=== PATIENT | female | born 1985 | race African-American/Black ===

== ENCOUNTER 2024-06-02 17:42 | Emergency (ER) | payer OTHER ==
--- NOTE | 2024-06-02 18:43 | ER ---
Nurse's Notes [facility] Name: Lacy Russo Age: 38 yrs Sex: Female : 1985 Arrival Date: 06/02/2024 Time: 17:42 Bed DIS1 Private MD: Diagnosis: Periapical abscess without sinus Presentation: 06/02 18:39 Chief complaint: Patient states: ABSCESS TO LEFT LOWER JAW LINE. Coronavirus screen: cm10 Client denies travel out of the [place] in the last 14 days. Ebola Screen: Patient denies travel to an Ebola-affected area in the 21 days before illness onset. No symptoms or risks identified at this time. Initial Sepsis Screen: Does the patient meet any 2 criteria? No. Patient's initial sepsis screen is negative. Does the patient have a suspected source of infection? No. Patient's initial sepsis screen is negative. Risk Assessment: Do you want to hurt yourself or someone else? Patient reports no desire to harm self or others. Onset of symptoms was May 31, 2024. 18:39 Method Of Arrival: Ambulatory 10 18:39 Acuity: IMANI 4 cm10 Triage Assessment: 18:42 General: Appears in no apparent distress. comfortable, Behavior is calm, cooperative. cm10 Neuro: No deficits noted. Level of Consciousness is awake, alert, obeys commands, Oriented to person, place, time, situation, Appropriate for age. Respiratory: No deficits noted. Airway is patent Respiratory effort is even, unlabored, Respiratory pattern is regular, symmetrical. Historical: - Allergies: 18:42 No Known Allergies; cm10 - Home Meds: 18:42 None [Active]; cm10 - PMHx: 18:42 None; cm10 - PSHx: 18:42 None; cm10 - Immunization history:: Adult Immunizations up to date. - Infectious Disease History:: Denies. - Social history:: Smoking status: Patient denies any tobacco usage or history of. Screenin:37 [facility] ED Fall Risk Assessment (Adult) History of falling in the last 3 months, ha1 including since admission No falls in past 3 months (0 pts) Confusion or Disorientation No (0 pts) Intoxicated or Sedated No (0 pts) Impaired Gait No (0 pts) Mobility Assist Device Used No (0 pt) Altered Elimination No (0 pt) Score/Fall Risk Level 0 - 2 = Low Risk Oriented to surroundings, Maintained a safe environment, Educated pt \T\ family on fall prevention, incl call for assistance when getting out of bed, Hourly rounding (assess needs \T\ fall precautionary measures) done. Abuse screen: Denies threats or abuse. Denies injuries from another. Nutritional screening: No deficits noted. Tuberculosis screening: No symptoms or risk factors identified. Assessment: 19:40 Reassessment: Patient and/or family updated on plan of care and expected duration. Pain ha1 level reassessed. Patient is alert, oriented x 3, equal unlabored respirations, skin warm/dry/pink. Patient states feeling better. Patient states symptoms have improved. Vital Signs: 18:39 BP 91 / 67; Pulse 79; Resp 16; Temp 97.9(O); Pulse Ox 100% on R/A; Weight 61.23 kg; cm10 Height 5 ft. 1 in. ; Pain 5/10; 19:41 BP 95 / 65; Pulse 76; Resp 18 S; Pulse Ox 99% on R/A; ha1 18:39 Body Mass Index 25.51 (61.23 kg, 154.94 cm) cm10 18:39 Pain Scale: Adult cm10 ED Course: 17:47 Patient arrived in ED. mr 18:11 Lauro Smallwood PA is PHCP. cp 18:11 Lauro Tomas MD is Attending Physician. cp 18:28 PHCP role handed off by Lauro Smallwood PA sb4 18:28 Julia Balderas PA-C is PHCP. sb4 18:42 Triage completed. cm10 18:42 Arm band placed on right wrist. Patient placed in waiting room. cm10 18:43 Dallas Benitez DDS is Referral Physician. sb4 19:00 Patient has correct armband on for positive identification. ha1 19:00 Provided Education on: plan of care . ha1 19:37 No provider procedures requiring assistance completed. Patient did not have IV access ha1 during this emergency room visit. Administered Medications: 19:19 Drug: Amoxicillin-Clavulanate PO 875 mg PO once Route: PO; ha1 19:40 Follow up: Response: No adverse reaction ha1 19:19 Drug: HYDROcodone-acetaminophen PO 5 mg-325 mg 1 tabs PO once Route: PO; ha1 19:40 Follow up: Response: No adverse reaction; Pain is decreased ha1 Medication: 19:39 VIS not applicable for this client. ha1 Outcome: 18:43 Discharge ordered by . wily 19:39 Discharged to home ambulatory, ha1 19:39 Condition: stable 19:39 Discharge instructions given to patient, Instructed on discharge instructions, follow up and referral plans. medication usage, Demonstrated understanding of instructions, follow-up care, medications, Prescriptions given X 3, 19:41 Patient left the ED. ha1 Signatures: Denisa Ga, Reg Reg mr Lauro Smallwood, PA Neelam Larkin cp, RN RN ha1 Julia Balderas PA-C PA-C juan j4 Madison Valverde RN RN cm10 Corrections: (The following items were deleted from the chart) 19:40 19:40 Response: No adverse reaction ha1 ha1
--- NOTE | 2024-06-02 18:43 | EDPHYS ---
Physician Documentation [facility] Name: Lacy Russo Age: 38 yrs Sex: Female : 1985 Arrival Date: 06/02/2024 Time: 17:42 Bed DIS1 Private MD: ED Physician Lauro Tomas HPI: 06/02 18:59 This 38 yrs old Black Female presents to ER via Ambulatory with complaints of Mouth sb4 swelling. 18:59 The patient presents with redness, swelling. The problem is located in the lower left sb4 second bicuspid and lower left first bicuspid. Onset: The symptoms/episode began/occurred yesterday. Duration: The symptoms are continuous. Modifying factors: The symptoms are alleviated by nothing, the symptoms are aggravated by air. Associated signs and symptoms: The patient has no apparent associated signs or symptoms. The patient has experienced similar episodes in the past, a few times, today's symptoms are similar. noticed dental abscess yesterday, dentist couldn't get her in today, told her to go to the ED. denies any fever. is tolerating PO . Historical: - Allergies: 18:42 No Known Allergies; cm10 - Home Meds: 18:42 None [Active]; cm10 - PMHx: 18:42 None; cm10 - PSHx: 18:42 None; cm10 - Immunization history:: Adult Immunizations up to date. - Infectious Disease History:: Denies. - Social history:: Smoking status: Patient denies any tobacco usage or history of. ROS: 19:00 Constitutional: Negative for fever, chills, and weight loss, sb4 19:00 ENT: Positive for per HPI, 19:00 All other systems are negative, Exam: 19:00 Constitutional: This is a well developed, well nourished patient who is awake, alert, sb4 and in no acute distress. Eyes: Extra-ocular motions intact. Periorbital areas with no swelling, redness, or edema. Respiratory: No increased work of breathing, no retractions or nasal flaring. Skin: Warm, dry with normal turgor. Normal color with no rashes, no lesions, and no evidence of cellulitis. 19:00 Head/face: Noted is swelling, that is mild, of the left jaw, 19:00 ENT: Dental exam: abscess, that is moderate, specifically in the lower left first bicuspid and lower left second bicuspid, dental caries, that is moderate, diffusely, gum swelling, Vital Signs: 18:39 BP 91 / 67; Pulse 79; Resp 16; Temp 97.9(O); Pulse Ox 100% on R/A; Weight 61.23 kg; cm10 Height 5 ft. 1 in. ; Pain 5/10; 19:41 BP 95 / 65; Pulse 76; Resp 18 S; Pulse Ox 99% on R/A; ha1 18:39 Body Mass Index 25.51 (61.23 kg, 154.94 cm) cm10 18:39 Pain Scale: Adult cm10 MDM: 18:41 Medical Screening Exam initiated sb4 19:00 Data reviewed: vital signs, nurses notes, and as a result, I will discharge patient. sb4 Counseling: I had a detailed discussion with the patient and/or guardian regarding the historical points, exam findings, and any diagnostic results supporting the discharge/admit diagnosis, the need for outpatient follow up, a dentist, to return to the emergency department if symptoms worsen or persist or if there are any questions or concerns that arise at home. Administered Medications: 19:19 Drug: Amoxicillin-Clavulanate PO 875 mg PO once Route: PO; ha1 19:40 Follow up: Response: No adverse reaction ha1 19:19 Drug: HYDROcodone-acetaminophen PO 5 mg-325 mg 1 tabs PO once Route: PO; ha1 19:40 Follow up: Response: No adverse reaction; Pain is decreased ha1 Disposition Summary: 06/02/24 18:43 Discharge Ordered Notes: Location: Home sb4 Problem: new sb4 Symptoms: have improved sb4 Condition: Stable sb4 Diagnosis - Periapical abscess without sinus sb4 Followup: sb4 - With: Dallas Benitez DDS - When: 2 - 3 days - Reason: Recheck today's complaints, Re-evaluation by your physician Discharge Instructions: - Discharge Summary Sheet sb4 - Dental Pain, [id number] sb4 - Dental Abscess, [id number] sb4 Forms: - Antibiotic Education sb4 - Patient Portal Instructions sb4 - Leadership Thank You Letter sb4 Prescriptions: - Peridex 0.12 % Mucous Membrane Mouthwash - swish 15 milliliter MUCOUS MEMBRANE route daily; 90 milliliter; Refills: 0, sb4 Product Selection Permitted - Amoxicillin 875 mg Oral Tablet - take 1 tablet ORAL route every 12 hours for 10 days; 20 tablet; Refills: 0, sb4 Product Selection Permitted - Tramadol 50 mg Oral Tablet - take 1 tablet ORAL route every 8 hours as needed; 12 tablet; Refills: 0, sb4 Product Selection Permitted Signatures: Neelam Sutherland RN RN ha1 Julia Balderas PA-C PA-C sb4 Madison Valverde RN RN cm10 Corrections: (The following items were deleted from the chart) 19:01 19:00 ENT: Dental exam: abscess, that is moderate, specifically in the lower left first sb4 bicuspid and lower left second bicuspid, gum swelling, sb4
[2024-06-02] MEDS ORDERED: HYDROCODONE/APAP 5/325 MG TAB ONE (19:10)
[2024-06-02] MEDS ORDERED: AMOX/K CLAV 875 MG TAB ONE (19:10)
[2024-06-02 20:14] VITALS: TEMP 97.9
[2024-06-02 20:15] VITALS: BP 95/65; O2SAT 99
== END 2024-06-02 19:41 | disposition home or self-care (01) ==
LOC: ER 17:42
DX: K04.7 Periapical abscess without sinus (principal)
CPT/HCPCS: 99283